=== PATIENT | male | born 1995 | race African-American/Black ===

== ENCOUNTER 2019-09-04 14:42 | Emergency (ER) | payer MEDICAID ==
[~2019-09-04] VITALS: Ht 180.3 cm; Wt 178.5 kg
[2019-09-04 14:51] VITALS: BP 143/81
--- NOTE | 2019-09-04 15:01 | NUR ---
23/M BIB SELF C/O COUGH,THROAT PAIN, FEVER, BODYACHES X 1 WK. PATIENT STATES PAIN OF 7/10 AT THIS TIME. PATIENT POSITIONED FOR COMFORT; HOB ELEVATED; BEDRAILS UP X1; BED DOWN. ER MD MADE AWARE OF PT STATUS.
--- NOTE | 2019-09-04 16:25 | NUR ---
Patient being evaluated by DR MONTENEGRO at bedside.
[2019-09-04 17:09] VITALS: BP 123/76
== END 2019-09-04 17:09 | disposition home or self-care (01) ==
LOC: MED 14:42
DX: J03.90 Acute tonsillitis, unspecified (principal); B34.9 Viral infection, unspecified; F17.209 Nicotine dependence, unspecified, with unspecified nicotine-induced disorders; R03.0 Elevated blood-pressure reading, without diagnosis of hypertension
CPT/HCPCS: 87081; 99283